=== PATIENT | male | born 1965 | race Caucasian/White ===

== ENCOUNTER → 2024-03-23 09:46 | Outpatient (REF) | payer BC, SELFPAY | LOC: HWCARD 09:46 | PROVIDERS: ATTENDING PHYSICIAN Internal Medicine | DX: R93.1 Abnormal findings on diagnostic imaging of heart and coronary circulation (principal) | CPT/HCPCS: 93005 ==

== ENCOUNTER → 2024-04-01 10:10 | Outpatient (REF) | payer BC, SELFPAY ==
--- NOTE | 2024-04-01 11:56 | CARDSERVDEF ---
Echocardiogram with Definity completed after protocol screening completed. Allergies verified.
Patent IV site: _#22 left hand____
IV site flushed with 0.9% NaCl pre and post administration.
Diluted bolus method utilized to enhance visualization of ventricular acevedo.
Total volume given: __4.0__ mL
Patient tolerated all procedures well without complications.
#22 martina placed Rt hand. Definity given. INT d/c'd. Pressure held. No bleeding noted.
== END ==
LOC: RCS 10:10
PROVIDERS: ATTENDING PHYSICIAN Internal Medicine
DX: R93.1 Abnormal findings on diagnostic imaging of heart and coronary circulation (principal); L10.0 Pemphigus vulgaris
CPT/HCPCS: 93017; 93350; Q9957

== ENCOUNTER → 2024-05-04 06:22 | Day surgery (SDC) | payer BC, SELFPAY | LOC: GI 06:22 | PROVIDERS: ATTENDING PHYSICIAN Internal Medicine | DX: Z12.11 Encounter for screening for malignant neoplasm of colon (principal); D12.2 Benign neoplasm of ascending colon; K57.30 Diverticulosis of large intestine without perforation or abscess without bleeding; K62.89 Other specified diseases of anus and rectum; K56.2 Volvulus; G47.30 Sleep apnea, unspecified; Z86.010 Personal history of colon polyps; Z80.0 Family history of malignant neoplasm of digestive organs | CPT/HCPCS: 45380; 88305 ==